=== PATIENT | female | born 2005 | race Two or more races ===

== ENCOUNTER 2025-05-25 06:30 | Emergency (ER) | payer OTHER ==
[~2025-05-25] VITALS: Ht 162.6 cm; Wt 59.0 kg
--- NOTE | 2025-05-25 07:10 | NUR ---
URINE COLLECTED AND SENT TO LAB
[2025-05-25] MEDS ORDERED: ONDANSETRON HCL/PF 4 MG/2 ML VIAL ONE (07:12)
[2025-05-25] MEDS: ONDANSETRON HCL/PF 4 MG/2 ML VIAL IVP ONE (07:21)
[2025-05-25] MEDS: IV NS 0.9% 1,000 ML BAG IV ONE (07:21)
[2025-05-25 07:26] LABS: PLATELET COUNT (AUTO) 336 K/uL (150-450); RED BLOOD CELL COUNT(AUTO) 4.49 MIL/uL (4.0-5.2); RED CELL DISTRIBUTION WIDTH 13.2 % (11.5-15.0); WHITE BLOOD COUNT (AUTO) 8.7 K/uL (4.3-11.0)
[2025-05-25 07:30] LABS: APPEARANCE,URINE CLEAR (CLEAR); BLOOD, URINE NEGATIVE Ery/uL (NEGATIVE); LEUKOCYTE ESTERASE ,URINE NEGATIVE (NEGATIVE); NITRITE, URINE NEGATIVE (NEGATIVE); UGLUCOSE NEGATIVE (NEGATIVE)
[2025-05-25 07:31] LABS: PREGNANCY TEST URINE QUAL NEGATIVE (NEGATIVE)
[2025-05-25 07:34] LABS: CALCIUM, SERUM 9.1 mg/dL (8.5-10.1); CREATININE 0.7 mg/dL (0.6-1.3); SODIUM SERUM 140.0 mmol/L (136-145); UREA NITROGEN, BLOOD 9.0 mg/dL (7-18)
[2025-05-25 07:35] LABS: ADD URINE CULTURE NO
[2025-05-25 07:40] LABS: ASPARTATE AMINOTRANSFERASE 17.0 U/L (15-37); TOTAL PROTEIN, SERUM 8.2 g/dL (6.4-8.2)
[2025-05-25] MEDS ORDERED: ONDA4TAB5 PO (08:46)
[2025-05-25] MEDS ORDERED: FAMO-131 PO (08:46)
[2025-05-25 08:50] VITALS: BP 126/65; TEMP 98; O2SAT 99
--- NOTE | 2025-05-25 09:01 | NUR ---
IV removed. Catheter intact and site benign. Pressure and 4x4 applied to site. No bleeding noted.Patient discharged to home in stable condition. Written and verbal after care instructions given. Patient verbalizes understanding of instruction.
== END 2025-05-25 09:03 | disposition home or self-care (01) ==
LOC: ER 06:54
DX: F10.10 Alcohol abuse, uncomplicated (principal); R10.13 Epigastric pain; R11.2 Nausea with vomiting, unspecified
CPT/HCPCS: 99283; 96374; 96361; 85025; 80048; 83690; 80076; 84703; 81001; 36415; J2405; J7030